=== PATIENT | female | born 1970 | race Caucasian/White ===

== ENCOUNTER → 2018-05-21 | Outpatient (CLI) | payer OTHER ==
[~2018-05-21] MED LIST: ACHD5005 PO; CYCL10TA9 PO; LVT.088T PO; PRM25T PO; [UNRECOGNIZED DRUG - OTHER] PO
--- NOTE | 2018-05-21 10:25 | Diagnostic Imaging Report ---
PROCEDURE: US Thyroid. TECHNIQUE: Multiple real-time grayscale images were obtained of the thyroid in various projections. INDICATION: Hypothyroidism. The right lobe of the thyroid is enlarged measuring 6.3 x 2.8 x 3.1 cm. Left lobe measures 4.6 x 1.6 x 1.7 cm. Right lobe is diffusely heterogeneous but no discrete mass is seen. There are several subcentimeter hypoechoic nodules within the left lobe, largest approximately 7 mm in size. No dominant thyroid mass is identified. IMPRESSION: Thyroid heterogeneity with subcentimeter nodules left lobe. No dominant thyroid mass is detected. Dictated by: Dictated on workstation # [id number]
== END ==
LOC: RAD 09:42
PROVIDERS: ATTEND Internal Medicine Endocrinology, Diabetes & Metabolism
DX: E04.2 Nontoxic multinodular goiter (principal); E03.9 Hypothyroidism, unspecified
CPT/HCPCS: 76536

== ENCOUNTER → 2019-03-31 | Outpatient (CLI) | payer BC ==
[2019-03-31 13:15] LABS: ALANINE AMINOTRANSFERASE 19 U/L (0-55); ALBUMIN 4.3 GM/DL (3.2-4.5); ALKALINE PHOSPHATASE 102 U/L (40-136); BILIRUBIN,TOTAL 0.6 MG/DL (0.1-1.0); BUN/CREATININE RATIO 11; CALCIUM 9.6 MG/DL (8.5-10.1); CARBON DIOXIDE 26 MMOL/L (21-32); CHLORIDE 104 MMOL/L (98-107); CHOLESTEROL 180 MG/DL (< 200); CREATININE SERUM 0.81 MG/DL (0.60-1.30); GFR ESTIMATED > 60; GLUCOSE 91 MG/DL (70-105); HDL CHOLESTEROL 45 MG/DL (40-60); POTASSIUM 3.7 MMOL/L (3.6-5.0); SODIUM 139 MMOL/L (135-145); TOTAL PROTEIN 7.7 GM/DL (6.4-8.2); TRIGLYCERIDES 150 MG/DL (<150); VLDL CHOLESTEROL 30 MG/DL (5-40)
[2019-03-31 13:35] LABS: FREE T4 (FREE THYROXINE) 0.91 NG/DL (0.70-1.48)
== END ==
LOC: LAB 12:31
PROVIDERS: ATTEND Internal Medicine Endocrinology, Diabetes & Metabolism
DX: E03.8 Other specified hypothyroidism (principal); E28.2 Polycystic ovarian syndrome; E55.9 Vitamin D deficiency, unspecified
CPT/HCPCS: 36415; 80053; 80061; 82306; 84439; 84443; 84480

== ENCOUNTER → 2019-04-10 | Outpatient (CLI) | payer BC ==
--- NOTE | 2019-04-10 21:26 | Diagnostic Imaging Report ---
EXAMINATION: Magnetic resonance imaging of the right shoulder without contrast. DATE: April 10, 2019. COMPARISON: None. HISTORY: 48-year-old female, right shoulder pain. TECHNIQUE: Magnetic Resonance Imaging sequences were performed of the shoulder without contrast. FINDINGS: ROTATOR CUFF, LIGAMENTS, TENDONS, AND MUSCLES: There is supraspinatus tendinopathy. The infraspinatus, subscapularis and teres minor tendons are intact. There is normal rotator cuff muscle bulk and signal. LONG HEAD OF BICEPS: The biceps labral attachment and long head of the biceps tendon is intact. The long head of the biceps tendon is normally positioned within the bicipital groove. GLENOHUMERAL JOINT: The humeral head is well positioned relative to the glenoid. The labrum is grossly intact. There is no identified paralabral cyst. The articular cartilage is grossly intact. There is no joint effusion. ACROMIOCLAVICULAR JOINT: The acromioclavicular joint is normally aligned. The coracoclavicular and coracoacromial ligaments are intact. There are no degenerative changes of the acromioclavicular joint. BONE: The bones all have normal configuration. The bone marrow signal is within normal limits. Specifically, negative for fracture, osteomyelitis, osteonecrosis or marrow replacing process. BURSAE AND SOFT TISSUES: The bursae and soft tissue surrounding the shoulder are unremarkable. IMPRESSION: 1. Supraspinatus tendinopathy. Negative for rotator cuff tendon tear. 2. Intact acromioclavicular joint. 3. Grossly intact labrum and unremarkable additional glenohumeral joint assessment. 4. No acute fracture, bone contusion or evidence of osteonecrosis. Dictated by: Dictated on workstation # [id number]
== END ==
LOC: RAD 12:44
PROVIDERS: ATTEND Orthopaedic Surgery
DX: M75.111 Incomplete rotator cuff tear or rupture of right shoulder, not specified as traumatic (principal); M67.813 Other specified disorders of tendon, right shoulder
CPT/HCPCS: 73221

== ENCOUNTER 2019-05-07 06:09 | Outpatient (CLI) | payer BC ==
[~2019-05-07] VITALS: Ht 160 cm; Wt 116.6 kg
[2019-05-07] MEDS ORDERED: LEVO137T32 PO (10:11)
[2019-05-07] MEDS ORDERED: MINO100C2 PO (10:11)
[2019-05-07] MEDS ORDERED: LIOT5TAB PO (10:11)
[2019-05-07] MEDS ORDERED: PANT40TA3 PO (10:11)
[2019-05-07] MEDS ORDERED: RT-ALBUINH IH (10:11)
[2019-05-07] MEDS ORDERED: DICL100G31 TP (10:11)
[2019-05-07] MEDS ORDERED: CHOL500049 PO (10:11)
[2019-05-07] MEDS ORDERED: LISI1TAB10 PO (10:11)
[2019-05-07 10:15] VITALS: BP 156/88
== END 2019-05-07 14:00 | disposition home or self-care (01) ==
LOC: PREOP 06:09
PROVIDERS: ATTEND Orthopaedic Surgery
DX: Z01.818 Encounter for other preprocedural examination (principal)
CPT/HCPCS: 87081

== ENCOUNTER 2019-05-13 09:28 | Day surgery (SDC) | payer BC ==
--- NOTE | 2019-05-03 15:40 | HISTORY AND PHYSICAL ---
DATE OF SERVICE: ADMISSION HISTORY AND PHYSICAL This will be for outpatient surgery on 05/13/2019 for right shoulder arthroscopy. HISTORY OF PRESENT ILLNESS: The patient is a 48-year-old right hand dominant female with progressively worsening right shoulder and arm pain. She reports a several year history of right shoulder pain which became acutely worse in February. She has had weakness in her shoulder since that point. Although, she reports has improved somewhat. She denies neck pain, denies paresthesias. She denies specific injuries. MRI revealed a rotator cuff tendinosis with a SLAP tear and due to functional impairment and failure to improve with conservative measures, the patient elected to proceed with surgical intervention. REVIEW OF SYSTEMS: No chest pain, no shortness of breath, no dysuria. PAST MEDICAL HISTORY: Hypothyroidism, polycystic ovarian syndrome, sleep apnea, cystic acne and reflux. PAST SURGICAL HISTORY: Cholecystectomy, colonoscopy, and right carpal tunnel syndrome. FAMILY HISTORY: Significant for colon cancer, diabetes type 2, coronary artery disease. PRIMARY CARE PROVIDER: [facility]. MEDICATIONS: Lisinopril, minocycline, Synthroid, Protonix, Cytomel, albuterol, diclofenac, vitamin D. ALLERGIES: VALPROIC ACID AND TOPAMAX. SOCIAL HISTORY: Alcohol use is rare. Denies tobacco use. PHYSICAL EXAMINATION: GENERAL: The patient is a well-developed, well-nourished, in no acute distress. HEENT: Normocephalic, atraumatic. Pupils are equal, round, reactive to light. Oropharynx is clear. NECK: Supple, no lymphadenopathy. LUNGS: Clear to auscultation bilaterally. HEART: Regular rate and rhythm. ABDOMEN: Soft, nontender, nondistended. EXTREMITIES: The right shoulder demonstrates full active forward elevation, external rotation, internal rotation . She has weakness with abduction and external rotation. Positive Neer's and positive Hawkin sign and positive Burlington's maneuver. She has pain with resisted abduction, external or internal rotation. IMPRESSION: Right shoulder SLAP tear with partial thickness with rotator cuff tendinosis. PLAN: Right shoulder arthroscopy, acromioplasty, biceps tenotomy. The risks, benefits, options, ramifications and recovery were discussed at length with the patient. She understands and wishes to proceed. Job ID: [id number] DocumentID: [id number] Dictated Date: 05/03/2019 14:58:32 Email Specialist Date: 05/03/2019 15:39:58 Dictated By: ISIDRO CORRAL MD
[2019-05-13] VITALS (11 sets, daily range): BP systolic 104–140; BP diastolic 56–101
[~2019-05-13] VITALS: Ht 160 cm; Wt 116.6 kg
[~2019-05-13 09:28] MED LIST changes: +CHOL500049 PO; +DICL100G31 TP; +LEVO137T32 PO; +LIOT5TAB PO; +LISI1TAB10 PO; +MINO100C2 PO; +PANT40TA3 PO; +RT-ALBUINH IH
[2019-05-13] MEDS ORDERED: LACTATED RINGERS 1,000 ML IV PRN (09:32)
[2019-05-13] MEDS ORDERED: ceFAZolin INJECTION 1,000 MG in WATER (STERILE) FOR INJECTION 10 ML IV ONE (09:45)
[2019-05-13] MEDS ORDERED: FAMOTIDINE 20MG/2ML IV (PEPCID) ONE (10:27)
[2019-05-13] MEDS ORDERED: morphine PF (DURAMORPH) 10 MG/10 ML AMP ONE (10:44)
[2019-05-13] MEDS ORDERED: BUPIVACAINE 0.25% 30 ML (SENSORCAINE) VIAL ONE (10:44)
[2019-05-13] MEDS ORDERED: SEVOFLURANE (ULTANE) 15 ML INHAL SOLN ONE (10:51)
[2019-05-13] MEDS ORDERED: DEXAMETHASONE 10 MG/ML (DECADRON) 1 ML VIAL ONE (10:51)
[2019-05-13] MEDS ORDERED: proPOfol 200 MG/20 ML (DIPRIVAN) VIAL IV ONE (10:51)
[2019-05-13] MEDS ORDERED: ONDANSETRON 4 MG/2 ML (SDV) Z0FRAN ONE (10:51)
[2019-05-13] MEDS ORDERED: fentaNYL INJECTION 100 MCG/2 ML AMP ONE (10:51)
[2019-05-13] MEDS ORDERED: LIDOCAINE PF 2% 5 ML (XYLOCAINE) VIAL ONE (10:51)
[2019-05-13] MEDS ORDERED: MIDAZOLAM 2 MG/2 ML (VERSED) VIAL ONE (10:56)
[2019-05-13] MEDS ORDERED: oxyCODONE/APAP 5/325MG (PERCOCET 5) TABLET PO PRN (11:00)
[2019-05-13] MEDS ORDERED: FAMOTIDINE 20MG/2ML IV (PEPCID) IV ONE (11:00)
--- NOTE | 2019-05-13 11:05 | Progress Note-Pre Operative ---
Pre-Operative Progress Note H&P Reviewed The H&P was reviewed, patient examined and no changes noted. Date Seen by Provider: May 13, 2019 Time Seen by Provider: 11:05 Date H&P Reviewed: May 13, 2019 Time H&P Reviewed: 11:05 Pre-Operative Diagnosis: right shoulder SLAP tear ISIDRO CORRAL MD May 13, 2019 11:05
--- NOTE | 2019-05-13 11:07 | Progress Note-Post Operative ---
Post-Operative Progess Note Surgeon (s)/Emotionally Impaired Teacher (s) Surgeon ISIDRO CORRAL MD Emotionally Impaired Teacher: Nba Baker Pre-Operative Diagnosis right shoulder SLAP tear Post-Operative Diagnosis right shoulder SLAP tear, labral tear and partial rotator cuff tear Procedure & Operative Findings Date of Procedure 05/13/19 Procedure Performed/Findings right shoulder arthroscopic biceps tenotomy and labral debridement and acromioplasty Anesthesia Type GETA Estimated Blood Loss Estimated blood loss (mL): minimal Specimens/Packing Specimens Removed none Packing: none ISIDRO CORRAL MD May 13, 2019 11:07
[2019-05-13] MEDS ORDERED: GLYCOPYRROLATE 0.2 MG/ML (ROBINUL) 2 ML VIAL ONE (11:34)
[2019-05-13] MEDS ORDERED: NEOSTIGMINE 3 MG/3 ML VIAL ONE (11:34)
[2019-05-13] MEDS ORDERED: ROCURONIUM 10 MG/ML 5 ML SYRINGE IV ONE (11:34)
[2019-05-13] MEDS ORDERED: morphine INJ 10 MG/ML 1ML (SYR OR VIAL) IVP ONE (12:00)
--- NOTE | 2019-05-13 13:41 | Anesthesia-General Post-Op ---
General Patient Condition Mental Status/LOC: Same as Preop Cardiovascular: Satisfactory Nausea/Vomiting: Absent Respiratory: Satisfactory Pain: Controlled Complications: Absent Post Op Complications Complications None Follow Up Care/Instructions Patient Instructions None needed. Anesthesia/Patient Condition Patient Condition Patient is doing well, no complaints, stable vital signs, no apparent adverse anesthesia problems. No complications reported per nursing. CURT HOLLIDAY CRNA May 13, 2019 13:41
[2019-05-13] MEDS ORDERED: OXYC-471 PO (13:54)
--- NOTE | 2019-05-13 14:40 | NUR ---
HAS RATED PAIN 1-2 DURING RECOVERY AND DSG REMAINS D/I TO RIGHT SHOULDER, SLING ON RIGHT ARM. ICE PACK TO SHOULDER AND CMS CHECKS WNL TO RIGHT HAND/ARM. ALERT, STATES SHE IS READY FOR DISMISSAL. TAKING PO FLUIDS WITHOUT PROBLEM.
--- NOTE | 2019-05-13 16:25 | OPERATIVE REPORT ---
DATE OF SERVICE: 05/13/2019 PREOPERATIVE DIAGNOSES: 1. Left shoulder superior labrum anterior to posterior tear. 2. Left shoulder labral tear. 3. Left shoulder partial thickness rotator cuff tear. POSTPERATIVE DIAGNOSES: 1. Left shoulder superior labrum anterior to posterior tear. 2. Left shoulder labral tear. 3. Left shoulder partial thickness rotator cuff tear. PROCEDURES: 1. Left shoulder arthroscopic biceps tenotomy. 2. Left shoulder arthroscopic labral debridement. 3. Left shoulder arthroscopic acromioplasty. SURGEON: Moris Corral MD [facility]: Nba Lam, who assisted throughout the procedure and closed the incisions. ANESTHESIA: General endotracheal by Megan Hart CRNA. ESTIMATED BLOOD LOSS: Minimal. DRAINS: None. COMPLICATIONS: None. POSTOPERATIVE PLAN: Sling for comfort with progressive range of motion as symptoms allow. The patient was transferred to the recovery room awake and in stable condition. STATEMENT OF MEDICAL NECESSITY: The patient is a 48-year-old right-hand dominant female with progressively worsening right shoulder pain and weakness. She had positive Neer's and positive Hawkin sign. She had failed to respond to conservative measures. An MRI revealed a SLAP tear as well as partial thickness rotator cuff tear and due to functional impairment, the patient elected to proceed with surgical intervention. Examination under anesthesia revealed forward elevation of 170 degrees, external rotation of 85 degrees and internal rotation of 75 degrees. Arthroscopic findings demonstrated fraying of the undersurface of the supraspinatus with no full thickness tearing. It was a type 2 SLAP tear with an anterior labral flap at the 3 o'clock position. The remainder of the labrum was intact. The rotator cuff otherwise was intact. There was no glenoid or humeral head articular wear. The subacromial space demonstrated moderate bursitis with sloping of the anterolateral acromion. DESCRIPTION OF PROCEDURE: After risks and benefits of the procedure were discussed and questions were answered, informed consent was signed and placed on the chart. The operative site was confirmed in the preoperative holding area initialed by the surgeon. The patient was transferred to the operating room. After adequate levels of general endotracheal anesthetic were obtained, a timeout was called, confirming the operative site. Examination under anesthesia was performed with above findings noted. The right shoulder and upper extremity were prepped and draped in the usual sterile fashion. Shoulder joint was injected with 20 mL of fluid as well as subacromial space. A standard posterior portal was placed under direct visualization. Anterior portal was created in the interval between biceps, subscapularis and glenoid. The biceps anchor was released and the stump was debrided with a shaver. The anterior labral flap was debrided with a shaver back to a stable edge. Scope was then redirected into the subacromial space and lateral portal was created. Bursectomy was performed and the acromion was planed to a flat type 1 acromion. The scope and instruments were removed. The portal sites were closed with 4-0 nylon in simple interrupted fashion. Shoulder joint was injected with Duramorph. The portal sites were infiltrated with plain Marcaine and soft dressing and sling were applied and the patient was transferred to the recovery room awake and in stable condition. Job ID: [id number] DocumentID: [id number] Dictated Date: 05/13/2019 11:44:35 Industrial Equipment Mechanic Date: 05/13/2019 16:23:59 Dictated By: MORIS CORRAL MD
== END 2019-05-13 14:40 | disposition home or self-care (01) ==
LOC: SDC 09:28
PROVIDERS: ATTEND Orthopaedic Surgery
DX: S43.432A Superior glenoid labrum lesion of left shoulder, initial encounter (principal); S43.422A Sprain of left rotator cuff capsule, initial encounter; E03.9 Hypothyroidism, unspecified; E28.2 Polycystic ovarian syndrome; K21.9 Gastro-esophageal reflux disease without esophagitis; I10 Essential (primary) hypertension; F32.9 Major depressive disorder, single episode, unspecified; F41.9 Anxiety disorder, unspecified; E66.01 Morbid (severe) obesity due to excess calories; G47.33 Obstructive sleep apnea (adult) (pediatric); Z91.048 Other nonmedicinal substance allergy status; Z90.49 Acquired absence of other specified parts of digestive tract; Z80.0 Family history of malignant neoplasm of digestive organs; Z83.3 Family history of diabetes mellitus; Z82.49 Family history of ischemic heart disease and other diseases of the circulatory system; Z79.2 Long term (current) use of antibiotics; Z79.891 Long term (current) use of opiate analgesic; Z79.899 Other long term (current) drug therapy; Z88.1 Allergy status to other antibiotic agents; Z88.8 Allergy status to other drugs, medicaments and biological substances; Z68.42 Body mass index [BMI] 45.0-49.9, adult
CPT/HCPCS: 84703

== ENCOUNTER → 2019-06-16 | Outpatient (CLI) | payer BC ==
[~2019-06-16] MED LIST changes: +OXYC-471 PO
--- NOTE | 2019-06-16 14:41 | Diagnostic Imaging Report ---
Digital mammogram, bilateral screening. This study was compared with prior exams of 12/29/2014. At this time there are no current complaints. The fibroglandular tissue in both breasts is heterogeneously dense. This does limit the sensitivity of this exam. The rounded calcific densities in the upper-outer aspect of the right breast seen previously are somewhat more conspicuous on this exam. These findings still have benign appearance are most likely related to fat necrosis. There is no primary or secondary sign of malignancy noted. Impression: 1. There is no evidence of malignancy. 2. The patient should have her annual bilateral screening mammogram on schedule in June 2020. ACR BI-RADS Category 1: Negative. Result letter will be mailed to the patient. Note: At least 10% of breast cancer is not imaged by mammography. Dictated by: Dictated on workstation # [id number]
== END ==
LOC: RAD 08:10
PROVIDERS: ATTEND Obstetrics & Gynecology
DX: Z12.31 Encounter for screening mammogram for malignant neoplasm of breast (principal)
CPT/HCPCS: 77067

== ENCOUNTER 2020-05-24 09:35 | Outpatient (RCR) | payer BC ==
[2020-05-03 10:05] LABS: BASOPHILS # (AUTO) 0.1 10^3/uL (0.0-0.1); BASOPHILS % (AUTO) 1 % (0-10); EOSINOPHILS # (AUTO) 0.4 10^3/uL (0.0-0.3); EOSINOPHILS % (AUTO) 3 % (0-10); HEMATOCRIT 44 % (35-52); HEMOGLOBIN 14.1 G/DL (11.5-16.0); LYMPHOCYTES # (AUTO) 1.7 X 10^3 (1.0-4.0); LYMPHOCYTES % (AUTO) 13 % (12-44); MEAN CORPUSCULAR HEMOGLOBIN 28 PG (25-34); MEAN CORPUSCULAR HGB CONC 32 G/DL (32-36); MEAN CORPUSCULAR VOLUME 87 FL (80-99); MEAN PLATELET VOLUME 9.8 FL (7.4-10.4); MONOCYTES # (AUTO) 0.8 X 10^3 (0.0-1.0); MONOCYTES % (AUTO) 7 % (0-12); NEUTROPHILS # (AUTO) 9.7 X 10^3 (1.8-7.8); NEUTROPHILS % (AUTO) 77 % (42-75); PLATELET COUNT 445 10^3/uL (130-400); WHITE BLOOD COUNT 12.7 10^3/uL (4.3-11.0)
[2020-05-03 10:22] LABS: ALANINE AMINOTRANSFERASE 22 U/L (0-55); ALBUMIN 4.4 GM/DL (3.2-4.5); ALKALINE PHOSPHATASE 101 U/L (40-136); BILIRUBIN,TOTAL 0.6 MG/DL (0.1-1.0); BUN/CREATININE RATIO 17; CALCIUM 10.1 MG/DL (8.5-10.1); CARBON DIOXIDE 25 MMOL/L (21-32); CHLORIDE 99 MMOL/L (98-107); CREATININE SERUM 0.98 MG/DL (0.60-1.30); GFR ESTIMATED > 60; GLUCOSE 103 MG/DL (70-105); POTASSIUM 3.9 MMOL/L (3.6-5.0); SODIUM 136 MMOL/L (135-145); TOTAL PROTEIN 8.2 GM/DL (6.4-8.2)
[~2020-05-24 09:35] MED LIST changes: -LIOT5TAB PO; +LIOT5TAB10 PO; -LISI1TAB10 PO; +LISI1TAB26 PO; -MINO100C2 PO; +MINO100C5 PO; -PANT40TA3 PO; +PANT40TA52 PO
== END 2020-06-10 08:30 | disposition home or self-care (01) ==
LOC: ONC 09:35
PROVIDERS: ATTEND Internal Medicine Hematology & Oncology
DX: D72.829 Elevated white blood cell count, unspecified (principal)
CPT/HCPCS: 80053; 85025; 88184; 88185; G0463; 99213

== ENCOUNTER → 2020-11-15 | Outpatient (CLI) | payer BC, MEDICAID ==
[~2020-11-15] MED LIST changes: -OXYC-471 PO; +OXYC1TAB11 PO
--- NOTE | 2020-11-15 16:04 | Diagnostic Imaging Report ---
INDICATION: Routine screening. COMPARISON: 06/16/2019 and 12/29/2014. TECHNIQUE: 2D and 3D bilateral screening mammography was performed with CAD. FINDINGS: Scattered fibroglandular densities are identified bilaterally. The parenchymal pattern is stable. Calcifications in the upper outer right breast from fat necrosis appear stable. No new mass or malignant appearing microcalcifications are seen. The axillae are unremarkable. IMPRESSION: No mammographic features suspicious for malignancy are identified. ACR BI-RADS Category 2: Benign findings. Result letter will be mailed to the patient. Note: At least 10% of breast cancer is not imaged by mammography. Dictated by: Dictated on workstation # [id number]
== END ==
LOC: RAD 12:31
PROVIDERS: ATTEND Nurse Practitioner
DX: Z12.31 Encounter for screening mammogram for malignant neoplasm of breast (principal)
CPT/HCPCS: 77063; 77067